=== PATIENT | male | born 1965 | race Caucasian/White ===

== ENCOUNTER → 2017-02-14 | Day surgery (SDC) | payer OTHER | END | disposition home or self-care (01) | LOC: SDCH 08:56 | DX: Z12.11 Encounter for screening for malignant neoplasm of colon (principal); K21.9 Gastro-esophageal reflux disease without esophagitis; F17.220 Nicotine dependence, chewing tobacco, uncomplicated; Z79.899 Other long term (current) drug therapy | CPT/HCPCS: J2704 ==